=== PATIENT | male | born 1995 | race African-American/Black ===

== ENCOUNTER 2018-12-25 04:59 | Emergency (ER) | payer BC, OTHER ==
[~2018-12-25] VITALS: Ht 175.3 cm; Wt 56.7 kg
[2018-12-25 04:59] VITALS: BP 134/91
--- NOTE | 2018-12-25 04:59 | NUR ---
VIJAY MOISE, PREBOOK. TAKEN TO CHAIR A
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
--- NOTE | 2018-12-25 05:17 | NUR ---
Dr. Mendez evaluating patient
[2018-12-25 05:27] VITALS: BP 134/91
--- NOTE | 2018-12-25 05:28 | NUR ---
Patient discharged with v/s stable. Written and verbal after care instructions given and explained. Patient verbalized understanding. Escorted by [place] [employer] in custody. All questions addressed prior to discharge. Advised to follow up with PMD.
== END 2018-12-25 05:28 ==
LOC: MED 04:59
DX: Z04.1 Encounter for examination and observation following transport accident (principal); R03.0 Elevated blood-pressure reading, without diagnosis of hypertension; J45.909 Unspecified asthma, uncomplicated; V89.2XXA Person injured in unspecified motor-vehicle accident, traffic, initial encounter; Y93.89 Activity, other specified; Y92.89 Other specified places as the place of occurrence of the external cause; Y99.8 Other external cause status
CPT/HCPCS: 99283